=== PATIENT | male | born 1950 | race Caucasian/White ===

== ENCOUNTER 2019-01-03 20:46 | Emergency (ER) | payer BC, OTHER ==
[~2019-01-03] VITALS: Ht 180.3 cm; Wt 78.5 kg
[~2019-01-03 20:46] MED LIST: NAPR-985 PO; OXYC-279 PO; TAMS-14 PO
[2019-01-03 20:50] VITALS: Ht 180.3 cm; Wt 78.5 kg
[2019-01-03] MEDS ORDERED: ONDANSETRON 4 MG INJ IV STA (20:50)
[2019-01-03] MEDS ORDERED: KETOROLAC 15 MG INJ IV STA (20:50)
[2019-01-03] MEDS ORDERED: LACTATED RINGER'S 1,000 ML IV STA (20:50)
--- NOTE | 2019-01-03 20:59 | ERD ---
ER Documentation Chief Complaint Chief Complaint RLQ abd pain HPI Generally healthy 68-year-old man complains of right lower quadrant abdominal pain beginning about 2:30 PM this afternoon while he was working, he has had some nausea but denies vomiting or diarrhea. Pain is been constant nonradiating and nonexertional, patient denies dysuria or hematuria, no fevers or chills, no chest pain or shortness of breath. ROS All systems reviewed and are negative except as per history of present illness. Medications Home Meds Active Scripts Tamsulosin Hcl* (Flomax*) 0.4 Mg Cap.er.24h, 0.4 MG PO DAILY, #30 CAP Prov:MAUREEN INGRAM MD 01/03/19 Naproxen* (Naprosyn*) 500 Mg Tablet, 500 MG PO BID PRN for PAIN AND/OR INFLAMMATION, #30 TAB Prov:MAUREEN INGRAM MD 01/03/19 Oxycodone HCl/Acetaminophen (Percocet 5-325 mg Tablet) 1 Each Tablet, 1 EACH PO TID PRN for PAIN LEVEL 6-10, #12 TAB Prov:MAUREEN INGRAM MD 01/03/19 Allergies Allergies: Coded Allergies: No Known Allergy (Unverified , 01/03/19) FmHx Family History: No diabetes Physical Exam Vitals Vital Signs Date Temp Pulse Resp B/P (MAP) Pulse Ox O2 O2 Flow FiO2 Time Delivery Rate 01/03/19 98.1 66 18 156/73 100 20:50 (100) Physical Exam GENERAL: Well-developed, well-nourished, well-hydrated, mild discomfort, afebrile HEENT: Moist mucous membranes, pink conjunctiva, no cervical spine tenderness or step-off deformities, no goiter, no jaundice or icterus, extraocular movements intact without pain. CARDIAC: Regular rate and rhythm, no murmurs rubs or gallops LUNGS: Clear bilaterally no wheezing crackles or stridor ABDOMEN: Soft nontender, no guarding, no rigidity, no rebound, no psoas sign no obturator sign. SKIN: Warm and dry to touch, no abrasions, contusions, or hematomas, no lacerations, no ecchymosis, no target lesions, and without ulcers EXTREMITIES: No clubbing cyanosis or edema, calves are bilaterally symmetrical. Distal pulses equal and bilateral Result Diagram: 01/03/19201401/03/192014 Results 24 hrs Laboratory Tests Test 01/03/19 20:15 01/03/19 22:14 White Blood Count 10.7 10^3/ul Red Blood Count 4.69 10^6/ul Hemoglobin 13.4 g/dl Hematocrit 41.9 % Mean Corpuscular Volume 89.3 fl Mean Corpuscular Hemoglobin 28.6 pg Mean Corpuscular Hemoglobin Concent 32.0 g/dl Red Cell Distribution Width 13.2 % Platelet Count 144 10^3/UL Mean Platelet Volume 9.7 fl Immature Granulocytes % 0.400 % Neutrophils % 86.8 % Lymphocytes % 7.8 % Monocytes % 4.9 % Eosinophils % 0.0 % Basophils % 0.1 % Nucleated Red Blood Cells % 0.0 /100WBC Immature Granulocytes # 0.040 10^3/ul Neutrophils # 9.3 10^3/ul Lymphocytes # 0.8 10^3/ul Monocytes # 0.5 10^3/ul Eosinophils # 0.0 10^3/ul Basophils # 0.0 10^3/ul Nucleated Red Blood Cells # 0.0 10^3/ul Prothrombin Time 14.1 Sec Prothrombin Time Ratio 1.1 INR International Normalized Ratio 1.08 Activated Partial Thromboplast Time 29.4 Sec Sodium Level 138 mmol/L Potassium Level 4.4 mmol/L Chloride Level 100 mmol/L Carbon Dioxide Level 30 mmol/L Anion Gap 8 Blood Urea Nitrogen 20 mg/dl Creatinine 1.53 mg/dl Est Glomerular Filtrat Rate mL/min 45 mL/min Glucose Level 120 mg/dl Calcium Level 9.8 mg/dl Total Bilirubin 1.2 mg/dl Direct Bilirubin 0.00 mg/dl Indirect Bilirubin 1.2 mg/dl Aspartate Amino Transf (AST/SGOT) 44 IU/L Alanine Aminotransferase (ALT/SGPT) 52 IU/L Alkaline Phosphatase 68 IU/L Troponin I < 0.012 ng/ml Total Protein 7.8 g/dl Albumin 4.5 g/dl Globulin 3.30 g/dl Albumin/Globulin Ratio 1.36 Lipase 70 U/L Urine Color STRAW Urine Clarity CLEAR Urine pH 8.0 Urine Specific Ke[place] 1.011 Urine Ketones 1+ mg/dL Urine Nitrite NEGATIVE mg/dL Urine Bilirubin NEGATIVE mg/dL Urine Urobilinogen NEGATIVE mg/dL Urine Leukocyte Esterase NEGATIVE Loco/ul Urine Hemoglobin NEGATIVE mg/dL Urine Glucose NEGATIVE mg/dL Urine Total Protein NEGATIVE mg/dl Current Medications Medications Dose Sig/George Start Time Status Last (Trade) Ordered Route PRN Stop Time Admin Dose Reason Admin Lactated 1,000 ml @ Q1H STAT 01/03/19 DC 01/03/19 Ringer's 1,000 mls/hr IV 20:50 21:02 01/03/19 21:49 Ondansetron 4 mg ONCE STAT 01/03/19 DC 01/03/19 HCl (Zofran IV 20:50 21:02 Inj) 01/03/19 20:51 Ketorolac 15 mg ONCE STAT 01/03/19 DC 01/03/19 Tromethamine IV 20:50 21:02 (Toradol) 01/03/19 20:51 Procedures/MDM IV line was established patient was placed on potline monitor rhythm strip reve aled a sinus rhythm at about 70 bpm with upright P and T waves. Patient was afebrile I administered 1 L normal saline IV, Toradol 15 mg IV, Zofran 4 mg IV EKG performed, read by me revealed a normal sinus rhythm at 64 bpm, normal axis, narrow QRS complex, no concerning ST elevations or depressions noted CT scan of the abdomen pelvis was performed revealing mild right hydroureteronephrosis and a 3 mm distal urinary calculus, appendix was not clearly visualized, no other concerning findings noted. Please refer to radiologist dictation for full report. CBC was normal, electrolytes revealed mild to 1.5, liver function test normal, troponin negative, urinalysis was negative for RBCs or infection. I spoke to urologist on-call Dr. Carmen regarding the patient's presentation, symptomatology, lab values, he recommended outpatient management and discharge from the ER with a prescription for analgesics and tamsulosin. I spoke to Dr. Peguero regarding the side effects of tamsulosin including orthostatic hypotension, dizziness, and syncope. Differential diagnoses considered, included but not limited to acute coronary syndrome, pulmonary embolism, aortic dissection, abdominal aortic aneurysm, sepsis, stroke, meningitis, encephalitis, pneumonia, appendicitis, cholecystitis, bowel obstruction, pyelonephritis, nephrolithiasis, cystitis, as well as metabolic, hematologic, and electrolyte abnormalities. As well as abscess, cellulitis, fractures, and dislocations. Patient feels much better at this time, and vital signs are normal, symptoms have improved. I did give strict instructions to return to the ED if symptoms continue or worsen, patient will otherwise follow-up with primary care physician. Patient understood instructions and agreed to plan. Disclaimer: Inadvertent spelling and grammatical errors are likely due to EHR/dictation software use and do not reflect on the overall quality of patient care. Also, please note that the electronic time recorded on this note does not necessarily reflect the actual time of the patient encounter. Departure Diagnosis: Primary Impression: Hydroureter, right Additional Impression: Ureterolithiasis Condition: Good MAUREEN INGRAM MD Jan 03, 2019 20:59
[2019-01-03 23:07] VITALS: BP 151/81; PULSE 70; RESP 14
== END 2019-01-03 23:07 | disposition home or self-care (01) ==
LOC: E/R 20:46
DX: N13.2 Hydronephrosis with renal and ureteral calculous obstruction (principal)
CPT/HCPCS: 36415; 74176; 80053; 81003; 83690; 84484; 85025; 85610; 85730; 87086; 93005; 96374; 96375; 99285; J1885; J2405; J7120